=== PATIENT | female | born 1975 | race Caucasian/White ===

== ENCOUNTER 2020-09-10 09:32 | Day surgery (SDC) | payer OTHER, SELFPAY ==
[~2020-09-10] VITALS: Ht 154.9 cm; Wt 83.5 kg
[2020-09-10 10:07] LABS: HCG,QUAL RESULT NEGATIVE (NEGATIVE)
[2020-09-10] MEDS ORDERED: WATER FOR IRRIGATION,STERILE 1,000 ML IRRIG.SOLN IR ONE (10:23)
[2020-09-10] MEDS ORDERED: MIDAZOLAM HCL 5 MG/5 ML VIAL IVP ONE (10:23)
[2020-09-10] MEDS ORDERED: PROPOFOL 200MG/ 20ML VIAL (DIPRIVAN) IV ONE (10:23)
[2020-09-10] MEDS ORDERED: DEXAMETHASONE SOD PHOSPHATE 4 MG/ML VIAL IVP ONE (10:23)
[2020-09-10] MEDS ORDERED: LIDOCAINE 2%, 20 ML MDV IM ONE (10:23)
[2020-09-10] MEDS ORDERED: LIDOCAINE/EPI 1% 1:100000 20 ML VIAL INJ ONE (10:23)
[2020-09-10] MEDS ORDERED: fentaNYL CITRATE 250 MCG/5 ML AMP IV ONE (10:23)
[2020-09-10] MEDS ORDERED: SUGAMMADEX SODIUM 200 MG/2 ML VIAL IV ONE (10:23)
[2020-09-10] MEDS ORDERED: ONDANSETRON HCL 4 MG/2 ML VIAL IVP ONE (10:23)
[2020-09-10] MEDS ORDERED: ROCURONIUM BROMIDE 10 MG/ML (ZEMURON) IV ONE (10:23)
[2020-09-10] MEDS ORDERED: OXYMETAZOLINE HCL 0.05% NASAL SPRAY NS ONE (10:23)
[2020-09-10] MEDS ORDERED: DESFLURANE 15 MIN GAS INH ONE (10:23)
[2020-09-10] MEDS ORDERED: EPINEPHrine 1 MG/ML AMP IV ONE (10:23)
[2020-09-10] MEDS ORDERED: MUPIROCIN 2% TOPICAL OINTMENT 22 GM TP ONE (10:23)
[2020-09-10] MEDS ORDERED: NS IRRIG SOLN 1000 ML IR ONE (10:23)
[2020-09-10] MEDS ORDERED: hydrALAZINE HCL 20 MG/ML VIAL IVP PRN (11:15)
[2020-09-10] MEDS ORDERED: METOCLOPRAMIDE HCL 10 MG/2 ML VIAL IVP PRN (11:15)
[2020-09-10] MEDS ORDERED: MIDAZOLAM HCL 2 MG/2 ML VIAL (VERSED) IVP PRN (11:15)
[2020-09-10] MEDS ORDERED: MEPERIDINE HCL/PF 25 MG/ML DISP.SYRIN IVP PRN (11:15)
[2020-09-10] MEDS ORDERED: LR 1,000 ML IV SCH (11:15)
[2020-09-10] MEDS ORDERED: HYDROmorphone 1 MG/ML INJ. CARTRIDGE IVP PRN ×2 (11:15)
[2020-09-10] MEDS ORDERED: ONDANSETRON HCL 4 MG/2 ML VIAL ONE (13:04)
[2020-09-10] MEDS: ONDANSETRON HCL 4 MG/2 ML VIAL IVP PRN (13:04)
[2020-09-10 16:59] VITALS: BP_SYST 113
== END 2020-09-10 16:30 | disposition home or self-care (01) ==
LOC: SDS 09:32 → SMU 09:33 → SDS 16:30
PROVIDERS: ATTEND Otolaryngology
DX: J34.89 Other specified disorders of nose and nasal sinuses (principal); D38.5 Neoplasm of uncertain behavior of other respiratory organs; J34.2 Deviated nasal septum; J33.0 Polyp of nasal cavity; J32.9 Chronic sinusitis, unspecified; K21.9 Gastro-esophageal reflux disease without esophagitis; E66.9 Obesity, unspecified; I48.91 Unspecified atrial fibrillation; Z79.899 Other long term (current) drug therapy; Z20.822 Contact with and (suspected) exposure to COVID-19
CPT/HCPCS: 30140; 30520; 31255; 31256; 31296; 84703; 88305; 88311; C1726; C9399; J0171; J1100; J2001; J2250; J2405; J2704; J3010; U0003